=== PATIENT | female | born 1995 | race Caucasian/White ===

== ENCOUNTER 2020-10-18 16:44 | Outpatient (CLI) | payer MEDICAID | END 2020-10-18 16:45 | disposition home or self-care (01) | LOC: COV 16:44 | PROVIDERS: ATTEND Family Medicine | DX: R05 Cough (principal); R07.0 Pain in throat; R09.81 Nasal congestion; Z20.822 Contact with and (suspected) exposure to COVID-19 ==

== ENCOUNTER 2022-11-30 08:30 | Outpatient (CLI) | payer BC, MEDICAID ==
[2022-11-30 08:45] LABS: BASOPHILS # (AUTO) 0.1 10^3/uL (0.0-0.1); BASOPHILS % (AUTO) 1.1 %; EOSINOPHILS # (AUTO) 0.1 10^3/uL (0.0-0.7); EOSINOPHILS % (AUTO) 2.5 %; HCT - HEMATOCRIT 43.3 % (37.0-47.0); HGB - HEMOGLOBIN 14.7 g/dL (12.0-16.0); LYMPHOCYTES # (AUTO) 1.6 10^3/uL (1.5-3.5); LYMPHOCYTES % (AUTO) 34.1 %; MEAN CORPUSCULAR HEMOGLOBIN 32.4 pg (27.0-31.0); MEAN CORPUSCULAR HGB CONC 33.9 g/dL (32.0-36.0); MEAN CORPUSCULAR VOLUME 95.4 fL (81.0-99.0); MEAN PLATELET VOLUME 9.5 fL (7.9-10.8); MONOCYTES # (AUTO) 0.4 10^3/uL (0.0-1.0); MONOCYTES % (AUTO) 8.9 %; NEUTROPHILS # (AUTO) 2.5 10^3/uL (1.5-6.6); PLT - PLATELET COUNT 228 10^3/uL (130-450); RED BLOOD COUNT 4.54 10^6/uL (4.20-5.40); RED CELL DISTRIBUTION WIDTH 11.4 % (12.0-15.0); WHITE BLOOD COUNT 4.7 x10^3/uL (4.8-10.8)
[2022-11-30 08:57] LABS: ALBUMIN 4.5 g/dL (3.2-5.5); ALBUMIN/GLOBULIN RATIO 1.3 (1.0-2.2); BILIRUBIN,TOTAL 0.9 mg/dL (0.2-1.0); CALCIUM 8.9 mg/dL (8.5-10.3); CREATININE 0.8 mg/dL (0.4-1.0); POTASSIUM 3.9 mmol/L (3.5-5.0); TOTAL PROTEIN 8.1 g/dL (6.7-8.2)
[2022-12-01 05:10] LABS: HIV SCREEN 4TH GENERATION Non Reactive (Non Reactive)
== END 2022-11-30 08:31 | disposition home or self-care (01) ==
LOC: LAB 08:30
PROVIDERS: ATTEND Registered Nurse
DX: Z00.00 Encounter for general adult medical examination without abnormal findings (principal); Z79.899 Other long term (current) drug therapy; Z13.228 Encounter for screening for other metabolic disorders; Z13.0 Encounter for screening for diseases of the blood and blood-forming organs and certain disorders involving the immune mechanism
CPT/HCPCS: 36415; 80053; 85025; 87389

== ENCOUNTER 2023-03-10 12:17 | Emergency (ER) | payer BC ==
[2023-03-10] MEDS ORDERED: iohexoL-300 100 ML VIAL ONE (12:39)
[2023-03-10 12:47] LABS: BASOPHILS % (AUTO) 0.4 %; EOSINOPHILS # (AUTO) 0.1 10^3/uL (0.0-0.7); EOSINOPHILS % (AUTO) 1.2 %; HCT - HEMATOCRIT 43.3 % (37.0-47.0); LYMPHOCYTES # (AUTO) 0.8 10^3/uL (1.5-3.5); LYMPHOCYTES % (AUTO) 14.8 %; MEAN CORPUSCULAR HEMOGLOBIN 32.5 pg (27.0-31.0); MEAN CORPUSCULAR HGB CONC 34.6 g/dL (32.0-36.0); MEAN CORPUSCULAR VOLUME 93.7 fL (81.0-99.0); MEAN PLATELET VOLUME 9.4 fL (7.9-10.8); MONOCYTES # (AUTO) 0.6 10^3/uL (0.0-1.0); MONOCYTES % (AUTO) 11.7 %; NEUTROPHILS # (AUTO) 3.7 10^3/uL (1.5-6.6); NEUTROPHILS % (AUTO) 71.5 %; PLT - PLATELET COUNT 219 10^3/uL (130-450); RED BLOOD COUNT 4.62 10^6/uL (4.20-5.40); RED CELL DISTRIBUTION WIDTH 11.5 % (12.0-15.0); WHITE BLOOD COUNT 5.1 x10^3/uL (4.8-10.8)
--- NOTE | 2023-03-10 12:49 | ED Physician Documentation ---
History of Present Illness - Stated complaint Stated Complaint: ABD PX - Chief complaint Chief Complaint: Abd Pain - Additonal information Additional information: 19-year-old female with no pertinent past surgical history presents emergency department for evaluation of right lower quadrant abdominal pain. Reports it began about 7 PM last night. She states that for much of the day her stomach had been feeling weird and uncomfortable but in the evening pain seemed to center in the epigastrium. No fevers no vomiting. No urinary symptoms. Reports that she is currently on OCPs. No history of irregular menses or ovarian cysts Review of Systems Constitutional: reports: Reviewed and negative Nose: reports: Reviewed and negative Throat: reports: Reviewed and negative Cardiac: reports: Reviewed and negative Respiratory: reports: Reviewed and negative GI: reports: Abdominal Pain. denies: Nausea, Vomiting : reports: Reviewed and negative Skin: reports: Reviewed and negative PD PAST MEDICAL HISTORY - Present Medications Home Medications: Ambulatory Orders Medication Instructions Recorded Confirmed Dicyclomine [Bentyl] 10 mg PO BID PRN #20 cap 03/10/23 Ondansetron Odt [Zofran] 4 mg TL Q6H PRN #10 tablet 03/10/23 - Allergies Allergies/Adverse Reactions: Allergies Allergy/AdvReac Type Severity Reaction Status Date / Time No Known Drug Allergies Allergy Verified 03/10/23 12:25 PD ED PE NORMAL - General General: Alert and oriented X 3, No acute distress, Well developed/nourished - HEENT HEENT: Atraumatic, Moist mucous membranes - Neck Neck: Supple, no meningeal sign, No adenopathy - Cardiac Cardiac: RRR, No murmur - Respiratory Respiratory: No respiratory distress, Clear bilaterally - Abdomen Abdomen: Normal bowel sounds, Soft. No: Non tender (Mild tenderness was elicited with palpation of the right lower quadrant though there was no guarding or rebound. No CVA or flank tenderness.) - Back Back: No CVA TTP - Derm Derm: Normal color, Warm and dry - Extremities Extremities: No deformity - Neuro Neuro: Alert and oriented X 3, user interface engineer 2-12 intact Eye Opening: Spontaneous Motor: Obeys Commands Verbal: Oriented GCS Score: 15 Results - Vitals Vitals: Vital Signs - 24 hr 03/10/23 03/10/23 12:20 14:22 Temperature 36.6 C Heart Rate 102 H 75 Respiratory 16 12 Rate Blood Pressure 137/83 H 114/72 O2 Saturation 100 100 Oxygen O2 Source Room air - Labs Labs: Laboratory Tests 03/10/23 03/10/23 03/10/23 12:30 12:42 12:42 WBC 5.1 RBC 4.62 Hgb 15.0 Hct 43.3 MCV 93.7 MCH 32.5 H MCHC 34.6 RDW 11.5 L Plt Count 219 MPV 9.4 Neut # (Auto) 3.7 Lymph # (Auto) 0.8 L Grant # (Auto) 0.6 Eos # (Auto) 0.1 Baso # (Auto) 0.0 Absolute Nucleated RBC 0.00 Nucleated RBC % 0.0 Sodium 137 Potassium 3.2 L Chloride 103 Carbon Dioxide 25 Anion Gap 9.0 BUN 11 Creatinine 0.8 Estimated GFR (MDRD) 85 L Glucose 103 H Calcium 9.1 Total Bilirubin 1.3 H AST 21 ALT 20 Alkaline Phosphatase 41 L Total Protein 8.0 Albumin 4.3 Globulin 3.7 Albumin/Globulin Ratio 1.2 Lipase 28 Urine Color YELLOW Urine Clarity CLEAR Urine pH 6.0 Ur Specific [place] <=1.005 Urine Protein NEGATIVE Urine Glucose (UA) NEGATIVE Urine Ketones NEGATIVE Urine Occult Blood TRACE-INTA Urine Nitrite NEGATIVE Urine Bilirubin NEGATIVE Urine Urobilinogen 0.2 (NORMAL) Ur Leukocyte Esterase NEGATIVE Ur Microscopic Review NOT INDICATED Urine Culture Comments NOT INDICATED Urine HCG, Qual NEGATIVE - Rads (name of study) CT abd Relevant Findings:: Final report received (Moderate segment of fluid-filled small bowel in the right lower quadrant with associated circumferential wall thickening and mesenteric inflammation. Findings may represent infectious or inflammatory enteritis. May represent inflammatory bowel disease/Crohn's. Appendix appears within normal limit) PD Medical Decision Making - ED course Complexity details: reviewed results, re-evaluated patient, considered differential, d/w patient ED course: Well-appearing 27-year-old female presents emergency department for evaluation of right lower quadrant pain. States yesterday she was having some generalized stomach upset when in the evening the pain focused in the right lower quadrant. She had some nausea but no vomiting. No diarrhea. No black or bloody stools. No pertinent past surgical history. On exam she appears remarkably well. Has no worrisome vital sign abnormalities or fevers. She did have some tenderness in the right lower quadrant though no guarding or rebound. Nonperitoneal. I did obtain CBC, electrolytes and urinalysis. She is not . No anemia. No leukocytosis. Electrolytes without worrisome derangement. Subsequently a CT of the abdomen was obtained to rule out acute appendicitis versus other etiologies such as bowel inflammation, obstruction ureter and nephrolithiasis. Subsequently CT scan does show some findings to suggest an inflammatory enteritis. I discussed the CT findings with the patient. Given the lack of fevers or worrisome vital sign abnormality I do not feel that she would benefit from antibiotics or steroids at this junction. She will be discharged with prescription for Zofran and dyclocmine. I am encouraging 24 hours of clear liquids followed by brat diet. She is encouraged also to keep a food journal to see if there is any food and sensitivities leading to her recurrent symptoms. Advised to follow close with PCP. She may benefit from referral to GI for evaluation of possible inflammatory bowel disorders. The usual emergent return precautions for worsening symptoms was discussed. Departure - Departure Disposition: 01 Home, Self Care Clinical Impression: Right lower quadrant abdominal pain, Enteritis Condition: Stable Record reviewed to determine appropriate education?: Yes Prescriptions: Dicyclomine [Bentyl] 10 mg PO BID PRN #20 cap PRN Reason: Abdominal Pain Ondansetron Odt [Zofran] 4 mg TL Q6H PRN #10 tablet PRN Reason: Nausea / Vomiting Comments: You are seen today in the emergency department because yesterday he had some generalized abdominal discomfort and in the evening it settled in the right lower quadrant of your abdomen. I am your labs today were essentially normal. The CT scan was obtained to rule out appendicitis. Your appendix appears normal on CAT scan so is your kidneys liver gallbladder and pelvic organs. The CT scan however does suggest an enteritis which is a clinical term for inf lammation of the small bowel. This is sometimes short-lived and due to simple viruses. It can also be a sign of an infectious or inflammatory process such as a Crohn's disorder. Sometimes food intolerances can also cause this. Over the next 24 hours would like you to sip clear liquids. If you find that your pain and symptoms are improving over the next 24 hours then you can slowly advance your diet with bananas, rice, applesauce and toast. I do recommend keeping a food journal to see if there are any food associations with your symptoms. You may benefit from referral to a pulp refiner operator to determine if you do have an inflammatory bowel disorder such as Crohn's. I prescribing Bentyl which is a medication that can be used for spasms in the intestines and help with pain. Zofran is a prescription I am prescribing for nausea. Return to the ER for new or worsening symptoms.
[2023-03-10 12:51] LABS: BILIRUBIN,URINE NEGATIVE (NEGATIVE); GLUCOSE, URINE (UA) NEGATIVE (NEGATIVE); KETONES,URINE (UA) NEGATIVE (NEGATIVE); LEUKOCYTE ESTERASE, URINE NEGATIVE (NEGATIVE); NITRITE,URINE NEGATIVE (NEGATIVE); OCCULT BLOOD,URINE TRACE-INTA (NEGATIVE); PROTEIN,URINE NEGATIVE (NEGATIVE); UROBILINOGEN,URINE 0.2 (NORMAL) E.U./dL (NORMAL)
[2023-03-10 12:53] LABS: CLARITY,URINE CLEAR (CLEAR); HCG UR QUAL NEGATIVE
[2023-03-10 13:02] LABS: ALBUMIN 4.3 g/dL (3.2-5.5); ALBUMIN/GLOBULIN RATIO 1.2 (1.0-2.2); BILIRUBIN,TOTAL 1.3 mg/dL (0.2-1.0); CALCIUM 9.1 mg/dL (8.5-10.3); CREATININE 0.8 mg/dL (0.4-1.0); POTASSIUM 3.2 mmol/L (3.5-5.0)
--- NOTE | 2023-03-10 14:05 | CT Report ---
PROCEDURE: ABDOMEN/PELVIS W INDICATIONS: RLQ Abdominal pain, appendicitis suspected CONTRAST: 100ml omni 300 TECHNIQUE: After the administration of intravenous contrast, 5 mm thick sections acquired from the diaphragms to the symphysis. 5 mm thick coronal and sagittal reformats were acquired. For radiation dose reducti on, the following was used: automated exposure control, adjustment of mA and/or kV according to tha ent size. COMPARISON: None FINDINGS: Image quality: Excellent. Lung bases and heart: Unremarkable. Liver: No solid mass. Gallbladder and biliary tree: Spleen: No splenomegaly. Pancreas: No pancreatic ductal dilation. Adrenals: No adrenal nodule. Kidneys and ureters: No hydronephrosis. No renal cystic lesion which requires follow up. No solid mas s. Bowel and peritoneum: Within the right lower quadrant, there is a moderate segment of circumferential wall thickening and associated mesenteric inflammation involving the distal small bowel/ileum which appears fluid-filled. No evidence for obstruction. This segment of bowel is fluid-filled. Visualized appendix appears within normal limits. Visualized colon appear unremarkable. Lymph nodes: No central or retroperitoneal adenopathy. Vessels: No infrarenal aortic aneurysm. PELVIS Reproductive organs: Unremarkable. Bladder: No abnormal wall thickening, accounting for underdistension. Pelvic lymph nodes: No pelvic adenopathy by size criteria. Bones: No aggressive osseous abnormality. No acute compression fractures. Other: No significant ventral or inguinal hernia. IMPRESSION: Moderate segment of fluid-filled small bowel in the right lower quadrant with associated circumferent ial wall thickening and mesenteric inflammation. Findings may represent an infectious or inflammatory enteritis. This segment appears to involve the distal ileum and may be more data entry representative of inflam matory bowel disease/Crohn's. The appendix appears within normal limits. No evidence for bowel obstru ction. Reviewed by: Preston Gomes MD on 03/10/2023 1:03 PM ANTONY Approved by: Preston Gomes MD on 03/10/2023 1:03 PM AKDARRIN Station ID: [id number]
--- OUTSIDE RECORDS SUMMARY | 2023-03-10 14:14 | EXTERNAL MEDICAL SUMMARY RPT | Continuity of Care Document ---
Author Name Unknown Address [address] [place] [address] Phone Organization [facility] Address [address] [place] [address] Phone Care Team Providers Care [employer] Assembler Name Role Phone Digna Chavez Unavailable Unavailable Problems date description facility 2023-03-10 11:36 Unspecified abdominal pain [facility] Results/Labs test date facility value unit notes Social History date description facility 2023-03-10 00:00 Never smoked tobacco ([facility] Vital Signs date measurement value units 2023-03-10 00:00 BP_diastolic 62 mmHg 2023-03-10 00:00 BP_systolic 102 mmHg 2023-03-10 00:00 heart_rate 99 /min 2023-03-10 00:00 o2_saturation 100 % 2023-03-10 00:00 respiration_rate 16 /min 2023-03-10 00:00 temperature_metric 36.72 C 2023-03-10 00:00 temperature_standard 98.1 F
[2023-03-10 14:27] VITALS: BP 114/72
[2023-03-10] MEDS: iohexoL-300 100 ML VIAL IVP ONE (16:12)
== END 2023-03-10 14:49 | disposition home or self-care (01) ==
LOC: ED 12:17
DX: K52.9 Noninfective gastroenteritis and colitis, unspecified (principal)
CPT/HCPCS: 36415; 74177; 80053; 81003; 81025; 83690; 85025; 99284; Q9967; 81001; 87086

== ENCOUNTER 2023-08-05 15:50 | Outpatient (CLI) | payer BC ==
--- NOTE | 2023-08-06 15:21 | Ultrasound Report ---
PROCEDURE: OB Detailed Eval INDICATIONS: SUPERVISION OF OUTSIDE/PRIOR DATING DATA: Last menstrual period (LMP): Unknown. LMP-based estimated date of delivery (MICHELLE): Unknown. First dating scan (date and location): 07/26/2023. Estimated date of delivery (MICHELLE) from first dating scan: 12/21/2023. The below data below was generated using the ultrasound MICHELLE of 12/21/2023 TECHNIQUE: Real-time scanning was performed of the fetus, with image documentation and biometric measurements. COMPARISON: None. FINDINGS: General: A single living intrauterine gestation is present. Presentation: Vertex Placenta: Placental position is anterior, without previa. Amniotic fluid index: 16.9 cm, within normal limits for gestational age. heart rate: 141 beats per minute. Maternal cervical canal: 2 points cm long; normal length is 2.5 cm or more. biometrics: Biparietal diameter: 5.1 cm 21 weeks 3 days a 9th percentile Head circumference: 19.4 cm 21 weeks 5 days 92nd percentile Abdominal circumference: 15.5 cm 20 weeks 5 days 57th percentile Femur length: 3.4 cm 20 weeks 5 days 55th percentile Estimated gestational age from initial scan: 20 weeks 2 days Composite gestational age from present scan: 21 weeks 2 days Estimated weight and percentile: 377 g 73rd percentile Measurement variability in biometric dating: +/- 10 days from 12-20 weeks gestation, +/- 2 weeks from 20-30 weeks gestation, +/- 3 weeks at 30 weeks gestation or later. Anatomic survey: Neuro: Ventricles are normal at less than 10 mm. Cisterna magna is normal at 3-11 mm. Cerebellum i s normal in size and morphology. Nuchal skin fold: Normal at less than 6 mm between 14 and 20 weeks gestational age. Face: Nose and lips, facial profile are normal. Spine: No evidence for spina bifida. Heart: 4-chambered heart is present, with normal ventricular outflow tracts. Diaphragm: Diaphragm is intact. Stomach: Left-sided stomach is present. Kidneys: No hydronephrosis. Normal is less than 5 mm in 2nd trimester, less than 7 mm in 3rd trimester. Cord: 3 vessel cord has a marginal insertion 1.7 cm from the superior tip. Bladder: Normal in size. Extremities: All 4 extremities are visualized. IMPRESSION: Single live intrauterine with ultrasound gestational age today of 21 weeks 2 days. Marginal cord insertion. Reviewed by: Margareth Medrano MD on 08/06/2023 3:20 PM PST Approved by: Margareth Medrano MD on 08/06/2023 3:20 PM PST Station ID: [id number]
== END 2023-08-05 15:51 | disposition home or self-care (01) ==
LOC: DI 15:50
PROVIDERS: ATTEND Nurse Practitioner Obstetrics & Gynecology
DX: Z34.02 Encounter for supervision of normal first pregnancy, second trimester (principal); Z36.89 Encounter for other specified antenatal screening

== ENCOUNTER 2023-09-20 09:53 | Outpatient (CLI) | payer OTHER ==
[2023-09-20 11:18] LABS: HGB - HEMOGLOBIN 13.2 g/dL (12.0-16.0); MEAN CORPUSCULAR HEMOGLOBIN 34.4 pg (27.0-31.0); MEAN CORPUSCULAR HGB CONC 35.7 g/dL (32.0-36.0); MEAN CORPUSCULAR VOLUME 96.4 fL (81.0-99.0); MEAN PLATELET VOLUME 9.1 fL (7.9-10.8); RED BLOOD COUNT 3.84 10^6/uL (4.20-5.40); RED CELL DISTRIBUTION WIDTH 12.8 % (12.0-15.0); WHITE BLOOD COUNT 7.9 x10^3/uL (4.8-10.8)
== END 2023-09-20 09:54 | disposition home or self-care (01) ==
LOC: LAB 09:53
PROVIDERS: ATTEND Nurse Practitioner Obstetrics & Gynecology
DX: Z36.9 Encounter for antenatal screening, unspecified (principal)
CPT/HCPCS: 36415; 82950; 85027

== ENCOUNTER 2023-11-06 16:06 | Outpatient (CLI) | payer OTHER ==
--- NOTE | 2023-11-07 15:41 | Ultrasound Report ---
PROCEDURE: OB Follow up INDICATIONS: MARGINAL CORD INSERTION OUTSIDE/PRIOR DATING DATA: Last menstrual period (LMP): Unknown. LMP-based estimated date of delivery (MICHELLE): Unknown. First dating scan (date and location): 08/05/[address] [facility]. Estimated date of delivery (MICHELLE) from first dating scan: 12/21/2023. The below data below was generated using the ultrasound MICHELLE of 12/21/2023. TECHNIQUE: Real-time scanning was performed of the fetus, with image documentation and biometric measurements. Endovaginal scanning: Not performed. COMPARISON: OB ultrasound, 08/05/2023. FINDINGS: General: A single living intrauterine gestation is present. Presentation: Vertex Placenta: Placental position is anterior, without previa. Amniotic fluid index: 13.1 cm, largest pocket 4.6 cm. heart rate: 138 beats per minute. Maternal cervical canal: Not visualized. biometrics: Biparietal diameter: 8.2 cm; 32 weeks 6 days; 23.4%. Head circumference: 30.2 cm; 34 weeks 2 days; 31.5%. Abdominal circumference: 30.0 cm; 34 weeks 0 day; 63.7%. Femur length: 6.6 cm; 33 weeks 6 days; 45.6%. Estimated gestational age from initial scan: 33 weeks 4 days. Composite gestational age from present scan: 33 weeks 5 days Estimated weight and percentile: 2285.5 g; 50.1% Measurement variability in biometric dating: +/- 10 days from 12-20 weeks gestation, +/- 2 weeks from 20-30 weeks gestation, +/- 3 weeks at 30 weeks gestation or more. Other: Placental cord insertion is 2.7 cm from the superior placental edge. IMPRESSION: 1. A single living IUP redemonstrated. 2. weight is 50.1% for gestational age. 3. GRACE 13.1 cm. 4. Marginal cord insertion is resolved. The cord insertion measures 2.7 cm from the superior placenta edge. Reviewed by: Jose E Chilel MD on 11/07/2023 2:40 PM AKDARRIN Approved by: Jose E Chilel MD on 11/07/2023 2:40 PM AKDT Station ID: [id number]
== END 2023-11-06 16:07 | disposition home or self-care (01) ==
LOC: DI 16:06
PROVIDERS: ATTEND Nurse Practitioner Obstetrics & Gynecology
DX: O43.193 Other malformation of placenta, third trimester (principal); Z3A.33 33 weeks gestation of pregnancy

== ENCOUNTER 2023-11-23 16:17 | Inpatient (IN) | payer OTHER ==
[2023-11-23] MEDS ORDERED: METHYLERGONOVINE 0.2 MG/ML VIAL IM PRN (17:09)
[2023-11-23] MEDS ORDERED: SODIUM CHLORIDE FLUSH 0.9% 10 ML SYRINGE IVP PRN (17:09)
[2023-11-23] MEDS ORDERED: LACTATED RINGERS 1,000 ML IV PRN (17:09)
[2023-11-23] MEDS ORDERED: fentaNYL 100 MCG/2 ML VIAL IVP PRN (17:09)
[2023-11-23] MEDS ORDERED: OXYTOCIN 10 UNIT/ML VIAL IM PRN (17:09)
[2023-11-23] MEDS ORDERED: TRANEXAMIC ACID IN NACL 1,000 MG/100 ML BAG IV PRN (17:09)
[2023-11-23] MEDS ORDERED: hydrALAZINE INJ 20 MG/ML VIAL IVP PRN ×2 (17:09)
[2023-11-23] MEDS ORDERED: LABETALOL 20 MG/4 ML SYRINGE IVP PRN ×3 (17:09)
[2023-11-23] MEDS ORDERED: TERBUTALINE 1 MG/ML VIAL SUBQ PRN (17:09)
[2023-11-23] MEDS ORDERED: miSOPROStoL 200 MCG TABLET PR PRN (17:09)
[2023-11-23] MEDS ORDERED: miSOPROStoL 200 MCG TABLET BC PRN (17:09)
[2023-11-23] MEDS ORDERED: NIFEdipine 10 MG CAPSULE PO PRN (17:09)
[2023-11-23] MEDS ORDERED: CARBOPROST TROMETHAMINE 250 MCG/ML VIAL IM PRN (17:09)
[2023-11-23 17:21] LABS: BASOPHILS % (AUTO) 0.2 %; EOSINOPHILS # (AUTO) 0.1 10^3/uL (0.0-0.7); EOSINOPHILS % (AUTO) 0.3 %; HCT - HEMATOCRIT 42.5 % (37.0-47.0); LYMPHOCYTES # (AUTO) 1.2 10^3/uL (1.5-3.5); LYMPHOCYTES % (AUTO) 8.2 %; MEAN CORPUSCULAR HEMOGLOBIN 34.2 pg (27.0-31.0); MEAN CORPUSCULAR HGB CONC 35.3 g/dL (32.0-36.0); MEAN CORPUSCULAR VOLUME 96.8 fL (81.0-99.0); MEAN PLATELET VOLUME 11.3 fL (7.9-10.8); MONOCYTES # (AUTO) 0.9 10^3/uL (0.0-1.0); MONOCYTES % (AUTO) 6.1 %; NEUTROPHILS # (AUTO) 12.1 10^3/uL (1.5-6.6); NEUTROPHILS % (AUTO) 84.6 %; PLT - PLATELET COUNT 203 10^3/uL (130-450); RED BLOOD COUNT 4.39 10^6/uL (4.20-5.40); RED CELL DISTRIBUTION WIDTH 11.9 % (12.0-15.0); WHITE BLOOD COUNT 14.3 x10^3/uL (4.8-10.8)
--- NOTE | 2023-11-23 17:29 | HISTORY & PHYSICAL EXAMINATION ---
Admit History - Visit Reason Visit Reason: Contractions - : 1 Parity: 0 Premature: 0 Ectopic: 0 : 0 Care: positive: [facility] Risk/History: positive: None Complications This : positive: None Smoking Status: Never smoker - Mother's Labs Mother's Blood Type: positive: O Mother's RH: positive: Positive GBS: positive: Other Rubella Status: positive: Immune - HPI Current EDU 12/21/23 Gestation 36 Weeks and 0 Days 1 Para 0 Vital Signs Temperature 37.3 C 11/23/23 16:30 Heart Rate 71 11/23/23 16:30 Respiratory Rate 16 11/23/23 16:30 Blood Pressure 140/87 H 11/23/23 16:30 Temperature 37.3 C 11/23/23 16:54 Heart Rate 71 11/23/23 16:30 Respiratory Rate 16 11/23/23 16:30 Blood Pressure 140/87 H 11/23/23 16:30 O2 Saturation If not protocol: Oxygen Flow, liters/minute - NST Procedure NST Procedure Start Date 11/23/23 Start Time 16:40 Stop Time 17:14 Vibroacoustic Stimulation Used No Patient States Movement Yes Meds/Allgy - Home Medications Home Medications: Ambulatory Orders Medication Instructions Recorded Confirmed Dicyclomine [Bentyl] 10 mg PO BID PRN #20 cap 03/10/23 Ondansetron Odt [Zofran] 4 mg TL Q6H PRN #10 tablet 03/10/23 - Allergies Allergies/Adverse Reactions: Allergies Allergy/AdvReac Type Severity Reaction Status Date / Time No Known Drug Allergies Allergy Verified 03/10/23 12:25 Review of Systems - Constitutional Constitutional: denies: Fatigue, Fever, Chills, Malaise - Eyes Eyes: denies: Blurred vision, Spots in vision, Dipolpia - Cardiovascular Cariovascular: denies: Irregular heart rate, Palpitations, Chest pain, Edema - Respiratory Respiratory: denies: Cough, Wheezing, SOB at rest - Gastrointestinal Gastrointestinal: denies: Constipation, Diarrhea, Nausea, Vomiting - Genitourinary Genitourinary: denies: Dysuria - Integumentary Integumentary: denies: Rash, Pruritis - Neurological Neurological: denies: Headache - Psychiatric Psychiatric: denies: Depression, Anxiety Physical - Abdominal Exam Vital Signs: Temp Pulse Resp BP Pulse Ox O2 Flow Rate 37.3 C 71 16 140/87 H 11/23/23 16:54 11/23/23 16:30 11/23/23 16:30 11/23/23 16:30 Contraction Frequency (min/apart): 2-4 Contraction Intensity: positive: Strong Uterine Resting Tone: positive: Soft - Monitoring Heart Rate Baseline: 150 Strip Review: positive: Category I - Presentation Presentation: positive: Vertex - Vaginal Exam Membranes: positive: Membranes intact Dilation (in cm): 8 Effacement (%): 100 Station: positive: 0 Cervical Position: positive: Anterior - Speculum Exam Speculum Exam Performed: positive: No Plan for Labor - Plan For Labor I expect patient to be DC'd or transferred within 96 hours.: Yes Plan for Labor: Keely is a 28yo @ 36.0wks gestation by 6.4wk U/S who presents to [facility] with c/o of contractions. She reports losing her mucus plug yesterday afternoon and states shortly after she noted menstrual like cramping. Last night the cramping continued with increased frequency and intensity that intermittently woke her and she felt like her sleep was not very restful throughout the night last night. This morning she reports the contractions continued to increase in both frequency and intensity as well as duration and upon arrival to [facility] she was noted to be 8/100/0 and vertex with bulging membranes. She is supported by her Eris. She has been a patient of [facility] for the duration of her which has remained uncomplicated. She is noted to be GBS unknown secondary to her labor status and her GBS swab was collected yesterday. call center analyst advertising inserter will be notified and presence requested at delivery secondary to 36.0wk gestation. Dating criteria: LMP: 03/09/2023 --> MICHELLE by LMP 12/14/2023 Initial U/S @ 6.4wks dates with MICHELLE 12/21/2023 Serial exams: agree mental retardation aide History: Term NSVB x 0. SAB x 0. Last pap 09/2021 WNL, no hx abnormal paps. Denies history of gonorrhea, chlamydia, genital herpes, oral herpes or any other STI. Sexual partner does NOT have HSV (oral or genital). Medical Hx: Irritable bowel syndrome Surgical Hx: none Social Hx: Monogamous with male partner. 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 Stopped drinking alcohol due to . Denies current use of tobacco, marijuana or other recreational drugs. Reports that she is safe in current relationship. Family Hx: Denies family history of congenital anomalies, Cystic Fibrosis or chromosomal abnormalities. Heart disease- mother at age 5, possible autoimmune component; HTN- PGM, PGF Allergies: NKDA Medications: PNV course: O positive, antibody neg Rubella immune, varicella immune Hep B neg, Hep C neg HIV non-reactive, RPR non-reactive Genetic screening - declined Initial U/S @ 6.4wks dates (MICHELLE differs 7 days from LMP) FAS WNL. Anterior placenta, no previa. Size c/w dating. EFW 73%tile. 3VC. GRACE WNL. Marginal cord insertion noted. Glucola: 73 Tdap: 09/27/2023 COVID vaccinated x 2 with 1 booster prior to plus addition booster during 06/26/2023 Influenza 06/26/2023 33wks U/S growth and GRACE. EFW 50.1%tile. Marginal cord insertion is resolved. The cord insertion measures 2.7 cm from the superior placenta edge. GBS: unknown/pending Physical exam: normocephalic, atraumatic Heart RRR w/o M/G/R Lungs CTAB, abdomen soft and nontender Abdomen gravid, soft, nontender. EFW 2800g FHR baseline 150s, moderate variability, + accels, no decels Contractions palpate strong every 2-4 minutes with soft resting tone SVE 8/100/0, vertex. Membranes intact, bulging Bilateral LE's no edema Mood is good Assessment: 28yo @ 39.0wks gestation by 6.4wk U/S labor Active labor FHR Category I GBS unknown Plan: Admit to [facility] for expectant management. Continuos monitoring. call center analyst advertising inserter notified. Presence requested for delivery secondary to delivery. Jacuzzi PRN. Nitrous oxide PRN. Epidural per maternal request. Anticipate .
[2023-11-23] MEDS ORDERED: SODIUM CHLORIDE FLUSH 0.9% 10 ML SYRINGE IVP SCH (18:00)
[2023-11-23] MEDS: lidocaine 1% 20 ML MDV ID PRN (19:05)
[2023-11-23] MEDS ORDERED: WITCH HAZEL/GLYCERIN 1 PAD TOP PRN (19:47)
[2023-11-23] MEDS ORDERED: HYDROCORTISONE 1% CREAM 28 GM TUBE PR PRN (19:47)
[2023-11-23] MEDS: OXYTOCIN/SODIUM CHLORIDE 500 ML IV PRN (19:56)
--- NOTE | 2023-11-23 19:56 | DELIVERY NOTE ---
Delivery Note - Labor Labor: positive: Spontaneous - Delivery Method Delivery Method: positive: Spontaneous vaginal delivery - Presentation Presentation: positive: Vertex, BLAZE - left occiput anterior - Nuchal Cord Nuchal Cord: positive: None - Amniotic Fluid Description Amniotic Fluid Description: positive: Clear - Episiotomy Type Episiotomy Type: positive: None - Laceration Laceration: positive: 1st degree, Other - Suture Suture Type: positive: Vicryl Suture Size: positive: 4-0 - Delivery Outcome Delivery Outcome: positive: Livebirth - [place]: positive: Stimulated, Warmed, [place] used [place] sex: positive: Male - Cord Cord: positive: 3 vessels - Placenta Placenta: positive: Intact, Spontaneous - Estimated Blood Loss Estimated Blood Loss (in cc): 174 (QBL) - Post Delivery Events Post Delivery Events: positive: No post delivery events - Delivery Comments (Free Text/Narrative) Delivery Comments (Free Text/Narrative): Labor: This 19yo @ 36.0wks gestation by LMP c/w 6.4wk U/S presented on 11/23/2023 in active labor. Cervix was 8/100/0 and vertex with intact membranes. FHR pattern demonstrated Category I pattern throughout labor. Normal labor course. SROM occurred at 1807 and was noted to be a moderate amount of clear fluid. Pt progressed to c/c/0 at 1810. : Normal SVB of viable male infant on 11/23/2023 @ 1846. No nuchal cord. The was placed on maternal abdomen, stimulated, dried, and placed skin to skin. Apgars were 8/9 at 1 and 5 minutes respectively. Pitocin administered via IV for hemostasis. The umbilical cord was allowed to stop pulsating at which time it was doubly clamped by CNM and cut by FOB. 3VC. Cord blood was obtained. Fundal massage and gentle cord traction applied for active management of the third stage. Placenta delivered spontaneously and intact @ 1855. QBL 174mL. Fourth stage: Uterine fundus firm and there is no excessive bleeding. The perineum, vagina, and cervix were inspected and found to have minor 1st degree periclitoral laceration which was repaired using 1 interrupted stitch with a 4-0 vicryl an an SH-needle in standard fashion and under sterile conditions. Tissues well approximated. initiated. Family bonding well. Both mother and baby were left in stable condition.
[2023-11-23] MEDS: IBUPROFEN 800 MG TABLET PO SCH (20:32)
[2023-11-24] MEDS: ACETAMINOPHEN 500 MG TABLET PO SCH (01:02)
[2023-11-24] MEDS: DOCUSATE SODIUM 100 MG CAPSULE PO SCH (10:09)
--- NOTE | 2023-11-24 17:53 | PROVIDER PROGRESS NOTE ---
Subjective - Subjective Subjective: S: Bonding well with baby. without difficulty. Bleeding decreased and is light. Pain is well controlled with oral medications. supportive at the bedside. O: Heart RRR w/o M/G/R, lungs CTAB, abdomen soft and nontender, fundus firm at U, perineum intact, light lochia rubra, bilateral LE's trace edema. A: 28yo PPD#1 s/p TSVB viable male Normal recovery P: Continue routine pp care and medications. Evaluate for discharge home tomorrow. Objective - Vital Signs/Intake & Output Vital Signs: Vital Signs x48h Temp Pulse Resp BP 11/24/23 15:47 36.9 C 70 17 119/71 11/24/23 11:48 36.8 C 73 16 110/67 Intake & Output: Intake & Output 11/21/23 11/22/23 11/23/23 11/24/23 23:59 23:59 23:59 23:59 Intake Total 600 Output Total 924 Balance -924 600 - Lab Results Fish Bones: 11/23/23 17:05 Other Labs: Lab Results x24hrs 11/24/23 Range/Units 01:57 Blood Type O POSITIVE Antibody Screen NEGATIVE
[2023-11-25 04:17] VITALS: O2SAT 100
--- NOTE | 2023-11-25 09:59 | DISCHARGE SUMMARY ---
Discharge Summary - HOSPITAL COURSE Hospital Course: Date of Admission: 11/23/2023 Date of Discharge: 11/25/2023 Diagnosis on Admission: 1. 28yo @ 39.0wks gestation by 6.4wk U/S 2. labor 3. Active labor 4. FHR Category I 5. GBS unknown Diagnosis on Discharge: 1. 28yo PPD#2 s/p TSVD viable male 2. 3. Normal recovery Brief History: She is a patient of [facility] [place] who presented to [facility] in active labor. Cervix was 8/100/0 and vertex with intact membranes. SROM occurred at 1807 and she progressed to spontaneously deliver a viable male infant on 11/23/2023 at 1846. Apgars were 8/9 at 1 and 5 minutes respectively. QBL 174mL. Perineum intact. Minor 1st degree periclitoral laceration repaired with 1 interrupted stitch using 4-0 vicryl on an SH needle in standard fashion and under sterile conditions. She has been doing well in her course. She is ambulating and tolerating a regular diet. She is urinating without difficulty and her lochia is normal. Her pain is well controlled with oral medications. She is without difficulty and she is bonding well with her baby. She will be discharged home today on day #2 with instructions to continue taking her vitamin while , and to continue taking ibuprofen and tylenol over the counter as needed for pain management. She intends to follow up with myself at [facility] in 2 weeks or sooner if needed. She has been given precautions to call if she has any worsening fevers, chills, abdominal pain, increased vaginal bleeding or foul smelling vaginal lochia. Physical exam: Normocephalic, atraumatic. Heart RRR w/o M/G/R, lungs CTAB, abdomen soft, and nontender, fundus firm at U-2, perineum intact, light lochia, rubra, bilateral LE's trace edema. Mood is good. - ALLERGIES Allergies/Adverse Reactions: Allergies Allergy/AdvReac Type Severity Reaction Status Date / Time No Known Drug Allergies Allergy Verified 03/10/23 12:25 - MEDICATIONS Home Medications: Ambulatory Orders Medication Instructions Recorded Confirmed Dicyclomine [Bentyl] 10 mg PO BID PRN #20 cap 03/10/23 Ondansetron Odt [Zofran] 4 mg TL Q6H PRN #10 tablet 03/10/23 - LABS Result Diagrams: 11/23/23 17:05
--- NOTE | 2023-11-25 10:34 | Discharge Plan ---
Discharge Plan Problem Reviewed?: Yes Disposition: Home, Self Care Condition: Good Diet: Regular Activity Restrictions: No Restrictions Shower Restrictions: No Driving Restrictions: No Weight Bearing: Full Weight Instruction Topics: Vaginal After, Self Care, Breastfeed Holds, Nutrition No Smoking: If you smoke, Please STOP! Call for help. Follow-up with: Dafne Gilliam CNM, RENE [Provider Admit Priv/Credential] - 1 Week (December 05 @ 1:00pm with [facility] in [place])
[2023-11-25 12:19] VITALS: BP 118/67
--- NOTE | 2023-11-25 13:46 | Labor Flowsheet ---
Labor Flowsheet Datetime Report Generated by CPN: 11/25/2023 13:46 Datetime: 11/25/2023 12:01 VITAL SIGNS NBP Sys/Jenny/Mean (mmHg): 118 : 67 : 78 Pulse: 71 Datetime: 11/23/2023 20:54 Respirations: 16 Datetime: 11/23/2023 20:49 SpO2 (%): 100 Temperature (C): 37.1 Temperature Route: Tympanic PAIN Pain Scale: 2 Datetime: 11/23/2023 19:15 Membranes Ruptured Date/Time: 11/23/2023 18:07 Datetime: 11/23/2023 19:00 Stage of : Recovery Datetime: 11/23/2023 18:43 Contraction Comments: pushiing with descent Datetime: 11/23/2023 18:39 FHR Baseline Rate : 140 FHR Baseline Changes: No Baseline Change COMMUNICATION Communication: RN at Bedside; RN Reviewed Strip; Provider at Bedside Datetime: 11/23/2023 18:31 UTERINE ACTIVITY Monitor Mode: External Frequency (min): 2-3 Quality: Strong Duration (sec): 50-80 Pattern: Normal: <= 5 Contractions in 10 Minutes Resting Tone (Palpate): Relaxed ASSESSMENT A Monitor Mode: Telemetry Variability: Moderate 6-25 bpm Accelerations: None Decelerations: None Category: Category I Datetime: 11/23/2023 18:10 STAGE 2 Pushing: Coached on Pushing; Urge to Push Pushing Position: Pushing with Contractions; Pushing Left Side Pushing Progress: Descent with Pushing Datetime: 11/23/2023 18:07 Vaginal Exam Comments: anterior lip. pushing through Datetime: 11/23/2023 18:05 VAGINAL EXAM Dilatation (cm): 9.5 Effacement (%): 100 Station: 0 Exam by: A Tawana Membranes Rupture Method: Spontaneous Amniotic Fluid Color: Clear Amniotic Fluid Amount: Moderate Datetime: 11/23/2023 18:02 Monitor Interventions for UA: Willmar Adjusted
== END 2023-11-25 13:20 | disposition home or self-care (01) | DRG 807 ==
LOC: WFO 16:17 → FBP 16:18 → WFO 17:21
PROVIDERS: ADMIT Nurse Practitioner Obstetrics & Gynecology; ATTEND Nurse Practitioner Obstetrics & Gynecology
PROC: 10E0XZZ Delivery of Products of Conception, External Approach (ICD-10-PCS; principal; 2023-11-23)
PROC: 0HQ9XZZ Repair Perineum Skin, External Approach (ICD-10-PCS; 2023-11-23)
DX: O70.0 First degree perineal laceration during delivery (principal); Z37.0 Single live birth; Z3A.39 39 weeks gestation of pregnancy
CPT/HCPCS: 59409; 85025; 86850; 86900; 86901; 99215; A9270; J7120